=== PATIENT | female | born 1995 | race Caucasian/White ===

== ENCOUNTER 2022-04-02 12:51 | Day surgery (SDC) | payer OTHER ==
[2022-04-02 14:23] LABS: Bilirubin Neg (Negative); Blood, Urine Negative (Negative); Clarity Clear (Clear); Glucose, Urine (Dipstick) Normal (Negative); Ketone, Urine Negative (Negative); Leukocyte Negative (Negative); Nitrite Negative (Negative); Protein, Urine (Dipstick) Negative (Neg-Trace); Urobilinogen Normal mg/dL (Less than 2)
[2022-04-02 14:27] LABS: Urine Culture Reflex No No
[2022-04-02 14:31] LABS: Bacteria/HPF None Seen HPF (None Seen); RBC/HPF None Seen HPF (0-3); Squamous Epithelial 0-3 HPF (0-3); WBC/HPF None Seen HPF (0-3)
[2022-04-02 14:40] LABS: Fetal Membranes Rupture No Membranes Rupture (No Rupture)
[2022-04-02 15:01] LABS: FFN Internal QC Analyzer PASS (PASS); FFN Internal QC Cassette PASS (PASS); Fetal Fibronectin Negative (Negative)
== END 2022-04-02 16:35 | disposition home or self-care (01) ==
LOC: CSHLD/OP 12:51
PROVIDERS: ATTEND Obstetrics & Gynecology
DX: O26.852 Spotting complicating pregnancy, second trimester (principal); Z3A.22 22 weeks gestation of pregnancy
CPT/HCPCS: 76815; 81001; 82731; 84112; 99283

== ENCOUNTER 2022-07-16 08:05 | Inpatient (IN) | payer OTHER ==
[2022-07-16] MEDS ORDERED: Diphenoxylate HCl/Atropine Tablet PO PRN ×2 (08:17)
[2022-07-16] MEDS ORDERED: Ondansetron PF 4 MG/2 ML Vial IVP PRN (08:17)
[2022-07-16] MEDS ORDERED: Promethazine HCl 25 MG/ML VIAL IM PRN (08:17)
[2022-07-16] MEDS ORDERED: Misoprostol 200 MCG TAB PR PRN (08:17)
[2022-07-16] MEDS ORDERED: Methylergonovine 0.2 MG/ML VIAL IM PRN (08:17)
[2022-07-16] MEDS ORDERED: Ibuprofen 800 MG TAB PO PRN (08:17)
[2022-07-16] MEDS ORDERED: Butorphanol Tartrate 1 MG/ML VIAL SLOW IVP PRN (08:17)
[2022-07-16] MEDS ORDERED: HYDROcodone/Acetaminophen 5/325 mg Tablet PO PRN ×2 (08:17)
[2022-07-16] MEDS ORDERED: Lidocaine 1% (PF) 30 ML VIAL SC PRN (08:17)
[2022-07-16] MEDS ORDERED: hydrALAZINE 20 MG/ML VIAL SLOW IVP PRN ×2 (08:17→09:04)
[2022-07-16] MEDS ORDERED: Carboprost 250 MCG/ML AMP IM PRN (08:17)
[2022-07-16] MEDS ORDERED: NS w/ Oxytocin 30 units 500 ML ONE (08:30)
[2022-07-16] MEDS ORDERED: NS w/ Oxytocin 30 units 500 ML IV SCH ×2 (08:30)
[2022-07-16] MEDS ORDERED: Lactated Ringer's 1,000 ML IV SCH (08:30)
[2022-07-16] MEDS ORDERED: Tranexamic Acid 1,000 MG/10 ML VIAL ONE (08:57)
[2022-07-16] MEDS ORDERED: Zolpidem Tartrate 5 MG TAB PO PRN (09:04)
[2022-07-16] MEDS ORDERED: traMADol HCl 50 MG TAB PO PRN (09:04)
[2022-07-16] MEDS ORDERED: Benzocaine-Menthol 82.5 ML CAN TOP PRN (09:04)
[2022-07-16] MEDS ORDERED: Bisacodyl 10 MG SUPP PR PRN (09:04)
[2022-07-16] MEDS ORDERED: Lanolin Ointment 7 GM TUBE TOP PRN (09:04)
[2022-07-16] MEDS ORDERED: Boostrix 0.5 ML (Tdap) VIAL (>/=7 yrs of age) IM ONE (09:04)
[2022-07-16] MEDS ORDERED: Milk Of Magnesia 30 ML UDCUP PO PRN (09:04)
[2022-07-16 09:33] VITALS: BMI 26.6
[2022-07-16] MEDS: Ibuprofen 800 MG TAB PO SCH ×3 (09:41→19:02)
[2022-07-16 09:42] LABS: Hemoglobin 12.2 g/dL (12.0-15.5); Mean Corpuscular Hemoglobin 31.9 pg (27.0-33.0); Mean Platelet Volume 9.8 fl (7.4-10.4); Platelet Count 125 10x3/uL (150-450); RBC Distribution Width 12.8 % (11.5-14.5); Red Blood Cell (RBC) Count 3.82 10x6/uL (3.90-5.03); White Blood Cell (WBC) Count 13.9 10x3/uL (3.5-10.5)
[2022-07-16 10:16] LABS: HBSAg Index 0.24 S/CO (0-0.99); Hep B Surf Ag Non-Reactive S/CO (NonReactive)
[2022-07-16 10:17] LABS: Syphilis Antibody Nonreactive (Nonreactive); Syphilis Antibody Index 0.03 S/CO (<1.00 Non-Reactive)
[2022-07-16] MEDS: Ferrous Sulfate 325 MG TAB PO SCH (11:56)
[2022-07-16] MEDS: Docusate 100 MG CAP PO SCH (19:56)
[2022-07-17 00:17] VITALS: TEMP 98.3
[2022-07-17] MEDS: Ibuprofen 800 MG TAB PO SCH ×2 (00:36→09:54)
[2022-07-17 07:39] VITALS: BP 101/56
[2022-07-17] MEDS ORDERED: Prenatal Vitamin 1 TAB PO SCH (09:00)
[2022-07-17] MEDS: Ferrous Sulfate 325 MG TAB PO SCH (09:05)
[2022-07-17] MEDS: Docusate 100 MG CAP PO SCH (09:54)
== END 2022-07-17 15:45 | disposition home or self-care (01) | DRG 807 ==
LOC: CSHLD/OP 08:05 → CSHLD 08:23 → CSHPP 11:44
PROVIDERS: ADMIT Obstetrics & Gynecology; ATTEND Obstetrics & Gynecology
PROC: 10E0XZZ Delivery of Products of Conception, External Approach (ICD-10-PCS; principal; 2022-07-16)
PROC: 0UQMXZZ Repair Vulva, External Approach (ICD-10-PCS; 2022-07-16)
PROC: 3E0334Z Introduction of Serum, Toxoid and Vaccine into Peripheral Vein, Percutaneous Approach (ICD-10-PCS; 2022-07-16)
DX: O26.893 Other specified pregnancy related conditions, third trimester (principal); Z37.0 Single live birth; Z67.41 Type O blood, Rh negative; Z3A.37 37 weeks gestation of pregnancy
CPT/HCPCS: 36415; 85027; 85461; 86780; 86850; 86870; 86900; 86901; 87340; 90384; 96372; 99285; J2590; U0003; U0005

== ENCOUNTER 2022-07-23 15:11 | Emergency (ER) | payer OTHER ==
[2022-07-23 16:04] LABS: #Basophils 0.1 10x3/uL (0.0-0.2); #Eosinphils 0.1 10x3/uL (0.0-0.5); #Neutrophils 11.6 10x3/uL (1.5-8.4); %Basophils 0.4 % (0.0-2.0); %Lymphocytes 8.4 % (18.0-47.0); %Neutrophils 82.6 % (40.0-75.0); Hemoglobin 10.5 g/dL (12.0-15.5); Mean Corpuscular Hemoglobin 32.3 pg (27.0-33.0); Mean Corpuscular Volume 95.1 fl (81.6-98.3); Mean Platelet Volume 9.1 fl (7.4-10.4); Platelet Count 232 10x3/uL (150-450); RBC Distribution Width 12.3 % (11.5-14.5); Red Blood Cell (RBC) Count 3.25 10x6/uL (3.90-5.03); White Blood Cell (WBC) Count 14.1 10x3/uL (3.5-10.5)
[2022-07-23 16:10] LABS: BHCG - Serum POSITIVE (NEGATIVE); Pregs Control Background? CLEAR/WHITE (CLR/WHITE); Pregs Control Bar Appear? YES (CONTROL BAR)
[2022-07-23 16:17] LABS: ALT (SGPT) 7 U/L (8-55); AST (SGOT) 11 U/L (5-34); Albumin 3.5 g/dL (3.5-5.0); Alkaline Phosphatase 75 U/L (40-110); Anion Gap 12 mmol/L (10-20); BUN (Urea Nitrogen) 10 mg/dL (7.0-18.7); Bilirubin, Total 0.3 mg/dL (0.2-1.2); CK (CPK) 24 U/L (29-168); Calc. Creatinine Clearance 0 mL/min (70-130); Calcium 8.6 mg/dL (7.8-10.44); Carbon Dioxide 25 mmol/L (22-29); Chloride 105 mmol/L (98-107); Estimated GFR 124; Globulin 3.2 g/dL (2.4-3.5); Glucose 110 mg/dL (70-105); Magnesium 1.9 mg/dL (1.6-2.6); Potassium 3.8 mmol/L (3.5-5.1); Protein, Total 6.7 g/dL (6.0-8.3); Sodium 138 mmol/L (136-145)
[2022-07-23 17:28] LABS: Bilirubin Neg (Negative); Blood, Urine 250 (Negative); Glucose, Urine (Dipstick) Normal (Negative); Ketone, Urine Negative (Negative); Leukocyte 500 (Negative); Nitrite Negative (Negative); Protein, Urine (Dipstick) 30 mg/dl (Neg-Trace); Urobilinogen Normal mg/dL (Less than 2)
[2022-07-23 17:46] LABS: Bacteria/HPF 1+ HPF (None Seen); WBC/HPF 21-50 HPF (0-3)
[2022-07-23 18:29] LABS: Hemoglobin 10.8 g/dL (12.0-15.5)
[2022-07-23] MEDS ORDERED: Tranexamic Acid 1,000 MG/10 ML VIAL ONE (22:47)
== END 2022-07-23 23:15 | disposition home or self-care (01) ==
LOC: CSHERS 15:11
DX: O72.1 Other immediate postpartum hemorrhage (principal); O90.81 Anemia of the puerperium
CPT/HCPCS: 80053; 81003; 81015; 82550; 83735; 84702; 84703; 85025; 86850; 86870; 86900; 86901; 87077; 87086; 93005; 94760; 96361; 96374